=== PATIENT | male | born 1995 | race African-American/Black ===

== ENCOUNTER 2019-02-10 14:21 | Emergency (ER) | payer OTHER ==
[2019-02-10 14:46] VITALS: BP 100/49
[2019-02-10] MEDS ORDERED: Lidocaine 2% w EPI 1:100,000* 20 ML VIAL INJ ONE (16:02)
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
[2019-02-10] MEDS ORDERED: Tetan/Diph/Pertus SYR(Tdap)* 0.5 ML SYR(BOOSTRIX) use SYR IM ONE (16:11)
== END 2019-02-10 16:42 | disposition home or self-care (01) ==
LOC: UCEAST 14:21
DX: S01.81XA Laceration without foreign body of other part of head, initial encounter (principal); S93.602A Unspecified sprain of left foot, initial encounter; V86.59XA Driver of other special all-terrain or other off-road motor vehicle injured in nontraffic accident, initial encounter; Y92.9 Unspecified place or not applicable
CPT/HCPCS: 12011; 90471; 90715; 99201; G0463

== ENCOUNTER 2019-02-16 15:54 | Emergency (ER) | payer OTHER ==
[2019-02-16 16:41] VITALS: BP 112/63
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
== END 2019-02-16 17:00 | disposition home or self-care (01) ==
LOC: UCEAST 15:54
DX: Z48.02 Encounter for removal of sutures (principal)